=== PATIENT | female | born 1955 | race African-American/Black ===

== ENCOUNTER → 2016-11-03 | Outpatient (CLI) | payer BC ==
[~2016-11-03] MED LIST: ALLERGY RELIEF10 M6 PO; ASPIRIN81 M2 PO; EFFEXOR XR150 MG PO; FENOFIBRATE145 M1 PO; GLUCOPHAGE500 MG PO; KEPPRA500 M1 PO; LISINOPRIL10 MG PO; MULTIPLE VITAMI1 T11 PO; PANTOPRAZOLE SO40 MG PO; PRENATAL1 TA1 PO; SERTRALINE HCL50 M1 PO; SIMVASTATIN40 MG PO; ZOLOFT100 MG PO
--- NOTE | ~2016-11-03 | MY29 ---
[facility] A Service of [facility] RADIOLOGY TEXT RESULTS PATIENT: JONATHAN ANDERSON LOCATION: [facility] : 53 UNIT #: [id number] AGE: [address]: Tian Mathis MD SEX: F ORDER DR: [id number] [facility] [address] [place], [place] [address] [id number] O MR#: [id number] Acc #: [id number] NAME: JONATHAN ANDERSON : 1955 SEX: F STUDY DATE/TIME: 11/03/2016 12:34 UNIT: [facility] ROOM: STUDY DESCRIPTION: MY BEREKET SCREENING W/ CAD BILAT Attending Physician: Tian Mathis M.D. Referring Physician: Tian Mathis M.D. Ordering Physician: Tian Mathis M.D. Primary Care Physician: Tian Mathis M.D. MEDICAL IMAGING REPORT This report is preliminary unless electronic signature is present EXAM Digital screening mammogram 11/03/2016 HISTORY 61-year-old woman no indicated risk elevation. Prior right breast biopsy. Annual screen. COMPARISON Mammograms date to 02/16/2006 with most recent 10/21/2015. FINDINGS Digital imaging of each breast was completed utilizing screening protocol. Review includes FDA-approved CAD device. Breast parenchyma is partially fatty replaced and mildly heterogeneous. Small nodular pattern anterior third left breast and upper inner quadrant right breast. Circumscribed nodule right superior lateral subareolar location is again noted. I see no interim change. There is no suspicious mass and no interval occurring microcalcifications or architectural disturbance. IMPRESSION Benign mammogram. Annual screening recommended. Patients over the age of 40 are entered into a reminder system with target due date for the next mammogram. A result letter will also be sent to the patient. BIRADS: 2, benign findings Dictated by... Stanley Tay M.D. THIS IS AN ELECTRONICALLY VERIFIED REPORT [facility] A Service of [facility] RADIOLOGY TEXT RESULTS PATIENT: JONATHAN ANDERSON LOCATION: [facility] : 53 UNIT #: [id number] AGE: [address]: Tian Mathis MD SEX: F ORDER DR: Stanley Tay M.D. at 11/04/2016 8:07 AM SNEHA/mahamed TD: 11/03/2016 19:53 JOB #: [id number] MEDICAL IMAGING REPORT Page 1 of 1 COPY
== END | disposition home or self-care (01) ==
LOC: CWCC 12:08
DX: Z12.31 Encounter for screening mammogram for malignant neoplasm of breast (principal)
CPT/HCPCS: G0202